=== PATIENT | male | born 1945 | race Caucasian/White ===

== ENCOUNTER 2024-01-01 14:16 | Observation (INO) ==
[2024-01-01] MEDS ORDERED: CONSULT PHARMACY - POTASSIUM & MAGNESIUM XX SCH (16:36)
[2024-01-01] MEDS ORDERED: NS 1,000 ML IV 1,000 ML ONE (16:39)
[2024-01-01 17:07] LABS: EOSINOPHILS # (AUTO) 0.1 x10^3/uL (0.0-0.2); EOSINOPHILS % (AUTO) 3.2 % (0.9-2.9); HEMATOCRIT 36.7 % (42.0-54.0); HEMOGLOBIN 12.4 g/dL (13.5-18.0); LYMPHOCYTES # (AUTO) 0.9 X10^3/uL (1.3-2.9); LYMPHOCYTES % (AUTO) 20.2 % (21.0-51.0); MEAN CORPUSCULAR HGB CONC 33.9 g/dL (33.0-35.0); MEAN CORPUSCULAR VOLUME 82.8 fL (80.0-100.0); MEAN PLATELET VOLUME 7.6 fL (7.4-11.0); MONOCYTES # (AUTO) 0.5 x10^3/uL (0.3-0.8); MONOCYTES % (AUTO) 11.6 % (0.0-13.0); NEUTROPHILS # (AUTO) 2.9 x10^3/uL (2.2-4.8); PLATELET COUNT 154 X10^3/uL (150.0-450.0); RED BLOOD COUNT 4.44 X10^6/uL (4.7-6.0); RED CELL DISTRIBUTION WIDTH 14.5 % (11.6-16.5); WHITE BLOOD COUNT 4.6 X10^3/uL (3.6-10.0)
[2024-01-01 17:18] LABS: ALANINE AMINOTRANSFERASE 21 Units/L (12-78); ALBUMIN 3.5 g/dL (3.4-5.0); ALKALINE PHOSPHATASE 82 Units/L (46-116); ASPARTATE AMINO TRANSFERASE 11 Units/L (15-37); BLOOD UREA NITROGEN 39 mg/dL (7-18); CALCIUM 8.5 mg/dL (8.5-10.1); CARBON DIOXIDE 25.5 mmol/L (21-32); CHLORIDE 108 mmol/L (98-107); COR NA(FOR HYPERGLY) 145 mmol/L (136-145); CREATININE 1.71 mg/dL (0.70-1.30); GLUCOSE 124 mg/dL (65-99); MAGNESIUM 1.8 mg/dL (2.0-2.9); POTASSIUM 4.4 mmol/L (3.5-5.1); SODIUM 144 mmol/L (136-145); eGFR NON BLACK RACES 41 (>60)
[2024-01-01] MEDS: NS 1,000 ML IV 1,000 ML IV SCH (17:20)
[2024-01-01] MEDS: CATAPRES TAB 0.1 MG PO ONE (17:25)
--- NOTE | 2024-01-01 17:35 | EKG ---
Test Reason : SOB Blood Pressure : */* mmHG Vent. Rate : 60 BPM Atrial Rate : 60 BPM P-R Int : 138 ms QRS Dur : 148 ms QT Int : 446 ms P-R-T Axes : * -55 53 degrees QTc Int : 446 ms Sinus rhythm with premature atrial complexes Right bundle branch block Left anterior fascicular block Bifascicular block Minimal voltage criteria for LVH, may be normal variant ( R in aVL ) Abnormal ECG No previous ECGs available Confirmed by Bereket Willingham MD ([id number]) on 01/02/2024 7:19:44 AM Referred By: Confirmed By: Bereket Willingham MD
[2024-01-01 17:46] VITALS: BMI 29.0
[2024-01-01 18:00] LABS: BILIRUBIN,URINE NEGATIVE (NEGATIVE); BLOOD/HEMOGLOBIN,URINE NEGATIVE (NEGATIVE); GLUCOSE, URINE NEGATIVE (NEGATIVE); KETONES,URINE NEGATIVE (NEGATIVE); LEUKOCYTE ESTERASE ,URINE NEGATIVE (NEGATIVE); NITRITES,URINE NEGATIVE (NEGATIVE); PROTEIN,URINE NEGATIVE (NEGATIVE); UROBILINOGEN,URINE NORMAL (NORMAL)
--- NOTE | 2024-01-01 18:09 | RAD ---
EXAM:CHESTHISTORY:dizziness, weakness, near syncope;COMPARISON:None.TECHNIQUE:Fronta l view of the chest was submitted for interpretation.FINDINGS:The cardiomediastinal silhouette is within normal limits. Lungs show no focal consolidation, pneumothorax, or pleural fluid.IMPRESSION:No acute cardiopulmonary process.THIS IS AN ELECTRONICALLY VERIFIED FINAL REPORT01/01/2024 6:06 PM - Electronically signed by Kiko Pederson MD
[2024-01-01 18:17] LABS: APPEARANCE,URINE CLEAR (CLEAR); COLOR,URINE YELLOW (YELLOW)
[2024-01-01] MEDS: APRESOLINE INJ 20 MG VIAL IVP ONE (18:31)
[2024-01-01] MEDS: MAG-OX TAB PO SCH (20:40)
[2024-01-01] MEDS: NovoLIN R (or HumuLIN R) SUBCUT PRN (20:46)
--- NOTE | 2024-01-01 20:58 | EKG ---
Test Reason : SOB Blood Pressure : */* mmHG Vent. Rate : 62 BPM Atrial Rate : 62 BPM P-R Int : 156 ms QRS Dur : 148 ms QT Int : 454 ms P-R-T Axes : -12 -58 53 degrees QTc Int : 460 ms Normal sinus rhythm Right bundle branch block Left anterior fascicular block Bifascicular block Minimal voltage criteria for LVH, may be normal variant ( R in aVL ) Septal infarct , age undetermined Abnormal ECG When compared with ECG of 01-JAN-2024 17:00, (Unconfirmed) premature atrial complexes are no longer present septal q waves more prominent Confirmed by Bereket Willingham MD ([id number]) on 01/02/2024 7:21:22 AM Referred By: Confirmed By: Bereket Willingham MD
[2024-01-01] MEDS: NORMODYNE INJ 20 MG VIAL IV PRN (21:05)
[2024-01-01] MEDS: SNACK - Diabetic Appropriate PO SCH (21:25)
--- NOTE | 2024-01-02 00:20 | EKG ---
Test Reason : SOB Blood Pressure : */* mmHG Vent. Rate : 61 BPM Atrial Rate : 61 BPM P-R Int : 166 ms QRS Dur : 148 ms QT Int : 460 ms P-R-T Axes : 105 -60 62 degrees QTc Int : 463 ms Normal sinus rhythm Right bundle branch block Left anterior fascicular block Bifascicular block Minimal voltage criteria for LVH, may be normal variant ( R in aVL ) Septal infarct (cited on or before 01-JAN-2024) Abnormal ECG When compared with ECG of 01-JAN-2024 20:46, (Unconfirmed) Questionable change in initial forces of Septal leads Confirmed by Bereket Willingham MD ([id number]) on 01/02/2024 7:21:37 AM Referred By: Confirmed By: Bereket Willingham MD
[2024-01-02 05:55] LABS: BASOPHILS % (AUTO) 0.8 % (0.2-1.0); EOSINOPHILS # (AUTO) 0.2 x10^3/uL (0.0-0.2); EOSINOPHILS % (AUTO) 3.4 % (0.9-2.9); HEMATOCRIT 36.5 % (42.0-54.0); HEMOGLOBIN 12.4 g/dL (13.5-18.0); LYMPHOCYTES # (AUTO) 0.7 X10^3/uL (1.3-2.9); LYMPHOCYTES % (AUTO) 14.6 % (21.0-51.0); MEAN CORPUSCULAR VOLUME 82.2 fL (80.0-100.0); MEAN PLATELET VOLUME 7.7 fL (7.4-11.0); MONOCYTES # (AUTO) 0.5 x10^3/uL (0.3-0.8); MONOCYTES % (AUTO) 11.3 % (0.0-13.0); NEUTROPHILS # (AUTO) 3.2 x10^3/uL (2.2-4.8); NEUTROPHILS % (AUTO) 69.9 % (42.0-75.0); PLATELET COUNT 152 X10^3/uL (150.0-450.0); RED BLOOD COUNT 4.44 X10^6/uL (4.7-6.0); RED CELL DISTRIBUTION WIDTH 14.5 % (11.6-16.5); WHITE BLOOD COUNT 4.6 X10^3/uL (3.6-10.0)
[2024-01-02 06:03] LABS: ALANINE AMINOTRANSFERASE 21 Units/L (12-78); ALBUMIN 3.4 g/dL (3.4-5.0); ALKALINE PHOSPHATASE 78 Units/L (46-116); ASPARTATE AMINO TRANSFERASE 14 Units/L (15-37); BLOOD UREA NITROGEN 33 mg/dL (7-18); CALCIUM 8.5 mg/dL (8.5-10.1); CARBON DIOXIDE 25.4 mmol/L (21-32); CHLORIDE 108 mmol/L (98-107); COR NA(FOR HYPERGLY) 144 mmol/L (136-145); CREATININE 1.56 mg/dL (0.70-1.30); GLUCOSE 130 mg/dL (65-99); MAGNESIUM 1.8 mg/dL (2.0-2.9); POTASSIUM 4.3 mmol/L (3.5-5.1); SODIUM 143 mmol/L (136-145); TOTAL PROTEIN 6.8 g/dL (6.4-8.2); eGFR NON BLACK RACES 46 (>60)
[2024-01-02] MEDS ORDERED: CONSULT PHARMACY - POTASSIUM & MAGNESIUM XX SCH (07:00)
[2024-01-02] MEDS: LOVENOX INJ 40 MG SYR SC SCH (09:07)
[2024-01-02] MEDS: MAG-OX TAB PO SCH (09:07)
--- NOTE | 2024-01-02 10:43 | DR.UPDATE ---
H&P Update Prescription drug monitoring program results: PDMP reviewed and no concerns identified H&P Reviewed: Yes Any changes to H&P?: Yes Changes noted:: WAS A DIRECT ADMISSION TO THE HOSPITAL OBSERVATION STATUS FOR FURTHER EVALUATION AND TREATMENT OF NEAR SYNCOPE, DIZZINESS, WEAKNESS, AND HYPERTENSION. ON ARRIVAL TO THE HOSPITAL, HIS VITALS WERE: 98.0-57-20-98%-204/78. LABS WERE OBTAINED. WBC 4.6, RBC 4.44, HGB 12.4, HCT 36.7, PLT COUNT 154, D-DIMER 0.97, SODIUM 144, POTASSIUM 4.4, CHLORIDE 108, BUN 39, CREATININE 1.71, GLUCOSE 124, CALCIUM 8.5, MAGNESIUM 1.8, TOTAL BILI 0.30, AST 11, ALT 21, ALK PHOS 82, CREATINE KINASE 78, TROPONIN 5.9, BNP 97.8, TOTAL PROTEIN 7.0, ALBUMIN 3.5. A URINALYSIS WAS OBTAINED AND WAS UNREMARKABLE, HOWEVER, A CULTURE WAS SET UP. A CHEST XRAY WAS OBTAINED AND REVEALED: NO ACUTE CARDIOPULMONARY DISEASE. EKG REVEALED: SINUS RHYTHM WITH PREMATURE ATRIAL COMPLEXES. RIGHT BUNDLE BRANCH BLOCK. HR 60 BPM. ON ADMISSION, HE WAS STARTED ON NORMAL SALINE AT 80 ML/HR, OTBS ACHS, HUMULIN R SLIDING SCALE, LOVENOX 40MG SC DAILY, AND THE LABETALOL PROTOCOL. WE WILL RESUME HIS HOME MEDICATIONS OF PRILOSEC, SIMVASTATIN, LABETALOL, NORVASC, TAMSULOSIN, SUCRALFATE, ASPIRIN, AND OLMESARTAN. WE WILL OBTAIN A BRAIN CT WITHOUT CONTRAST AND REPEAT SERIAL CARDIAC ENZYMES AND EKGS. OTHERWISE, WE WILL FOLLOW-UP WITH AM LABS AND CONTINUE TO MONITOR. TIME SPENT ON CLINICAL ASSESSMENT, REVIEWING LABS AND IMAGING, DECISION MAKING, AND DOCUMENTATION GREATER THAN 75 MINUTES. Patient was examined?: Yes Vital Signs: Temp Pulse Resp BP BP Pulse Ox O2 Del Method 01/02/24 08:00 97.6 F 65 18 155/67 97 Room Air 01/02/24 04:00 98.5 F 60 20 178/75 96 Room Air 01/02/24 00:00 98.2 F 62 20 159/71 98 Room Air 01/01/24 19:00 Room Air 01/01/24 21:20 184/80 01/01/24 21:00 201/82 01/01/24 20:00 97.6 F 62 18 179/77 99 Room Air 01/01/24 18:30 183/78 01/01/24 18:21 182/102 01/01/24 18:11 165/71 01/01/24 18:01 183/88 01/01/24 17:51 216/86 01/01/24 17:41 194/83 01/01/24 17:31 198/91 01/01/24 17:21 207/91 01/01/24 16:55 Room Air 01/01/24 17:11 98.0 F 57 L 20 190/86 98 Room Air 01/01/24 16:15 Room Air
[2024-01-02] MEDS ORDERED: NORVASC TAB 10 MG PO SCH (11:00)
--- NOTE | 2024-01-02 11:11 | EKG ---
Test Reason : SOB Blood Pressure : */* mmHG Vent. Rate : 56 BPM Atrial Rate : 56 BPM P-R Int : 164 ms QRS Dur : 144 ms QT Int : 458 ms P-R-T Axes : 21 -58 51 degrees QTc Int : 441 ms Sinus bradycardia Right bundle branch block Left anterior fascicular block Bifascicular block Minimal voltage criteria for LVH, may be normal variant ( R in aVL ) Septal infarct (cited on or before 01-JAN-2024) Abnormal ECG When compared with ECG of 02-JAN-2024 00:07, Questionable change in initial forces of Septal leads Confirmed by Bereket Willingham MD ([id number]) on 01/02/2024 11:07:11 AM Referred By: Confirmed By: Bereket Willingham MD
[2024-01-02] MEDS: ZOCOR TAB 20 MG PO SCH (11:19)
[2024-01-02] MEDS: PriLOSEC PO SCH (11:20)
[2024-01-02] MEDS: FLOMAX PO SCH (11:22)
[2024-01-02] MEDS: ASPIRIN EC 81 MG PO SCH (11:22)
[2024-01-02] MEDS: CARAFATE PO SCH (11:22)
[2024-01-02] MEDS: BENICAR PO SCH (11:22)
[2024-01-02] MEDS: NORMODYNE TAB 200 MG PO SCH (11:31)
--- NOTE | 2024-01-02 13:28 | EKG ---
Test Reason : SOB Blood Pressure : */* mmHG Vent. Rate : 57 BPM Atrial Rate : 57 BPM P-R Int : 154 ms QRS Dur : 142 ms QT Int : 462 ms P-R-T Axes : -26 -62 39 degrees QTc Int : 449 ms Sinus bradycardia Right bundle branch block Left anterior fascicular block Bifascicular block Minimal voltage criteria for LVH, may be normal variant ( R in aVL ) Septal infarct (cited on or before 01-JAN-2024) Abnormal ECG When compared with ECG of 02-JAN-2024 10:53, Questionable change in initial forces of Septal leads Confirmed by Bereket Willingham MD ([id number]) on 01/03/2024 7:40:43 AM Referred By: Confirmed By: Bereket Willingham MD
--- NOTE | 2024-01-02 15:33 | CT ---
EXAM:CT HEAD WITHOUT CONTRASTHISTORY:NEAR SYNCOPE, DIZZINESS; WEAKNESS, HTNCOMPARISON:None.TECHNIQUE:Axial CT images were obtained through the brain without contrast.All CT scans at this facility use dose modulation, iterative reconstruction, and/or weight based dosing when appropriate to reduce radiation dose to as low as reasonably achievable.FINDINGS:BRAIN: There is mild diffuse atrophy with proportionate enlargement of the cerebral sulci and ventricular system. Decreased attenuation in the periventricular white matter is compatible with but not specific for chronic small vessel ischemic changes. No evidence of acute infarct intra or extraaxial hemorrhage mass effect or hydrocephalus.CALVARIUM: NormalADDITIONAL FINDINGS: The visualized paranasal sinuses and mastoid air cells are clear. Orbits are grossly unremarkable.IMPRESSION:No evidence of acute intracranial process.THIS IS AN ELECTRONICALLY VERIFIED FINAL REPORT01/02/2024 3:30 PM - Electronically signed by Kiko Pederson MD
--- NOTE | 2024-01-02 19:23 | EKG ---
Test Reason : SOB Blood Pressure : */* mmHG Vent. Rate : 70 BPM Atrial Rate : 70 BPM P-R Int : 162 ms QRS Dur : 148 ms QT Int : 438 ms P-R-T Axes : 6 -63 60 degrees QTc Int : 473 ms Normal sinus rhythm Right bundle branch block Left anterior fascicular block Bifascicular block Minimal voltage criteria for LVH, may be normal variant ( R in aVL ) Septal infarct (cited on or before 01-JAN-2024) Abnormal ECG When compared with ECG of 02-JAN-2024 13:16, (Unconfirmed) Questionable change in initial forces of Septal leads Confirmed by Bereket Willingham MD ([id number]) on 01/03/2024 7:40:05 AM Referred By: Confirmed By: Bereket Willingham MD
[2024-01-02] MEDS: NORVASC TAB 10 MG PO SCH (21:26)
[2024-01-03 03:51] VITALS: O2SAT 98
[2024-01-03 05:44] LABS: BASOPHILS % (AUTO) 0.9 % (0.2-1.0); EOSINOPHILS # (AUTO) 0.2 x10^3/uL (0.0-0.2); HEMATOCRIT 37.2 % (42.0-54.0); HEMOGLOBIN 12.8 g/dL (13.5-18.0); LYMPHOCYTES # (AUTO) 0.6 X10^3/uL (1.3-2.9); LYMPHOCYTES % (AUTO) 12.4 % (21.0-51.0); MEAN CORPUSCULAR HEMOGLOBIN 28.2 pg (27.0-34.0); MEAN CORPUSCULAR HGB CONC 34.3 g/dL (33.0-35.0); MEAN CORPUSCULAR VOLUME 82.2 fL (80.0-100.0); MEAN PLATELET VOLUME 7.6 fL (7.4-11.0); MONOCYTES # (AUTO) 0.6 x10^3/uL (0.3-0.8); MONOCYTES % (AUTO) 12.3 % (0.0-13.0); NEUTROPHILS # (AUTO) 3.2 x10^3/uL (2.2-4.8); NEUTROPHILS % (AUTO) 70.4 % (42.0-75.0); PLATELET COUNT 154 X10^3/uL (150.0-450.0); RED BLOOD COUNT 4.53 X10^6/uL (4.7-6.0); RED CELL DISTRIBUTION WIDTH 14.4 % (11.6-16.5); WHITE BLOOD COUNT 4.5 X10^3/uL (3.6-10.0)
[2024-01-03 06:00] LABS: ALANINE AMINOTRANSFERASE 22 Units/L (12-78); ALBUMIN 3.4 g/dL (3.4-5.0); ALKALINE PHOSPHATASE 82 Units/L (46-116); ASPARTATE AMINO TRANSFERASE 13 Units/L (15-37); BLOOD UREA NITROGEN 26 mg/dL (7-18); CALCIUM 8.4 mg/dL (8.5-10.1); CARBON DIOXIDE 25.4 mmol/L (21-32); CHLORIDE 109 mmol/L (98-107); COR NA(FOR HYPERGLY) 144 mmol/L (136-145); GLUCOSE 127 mg/dL (65-99); POTASSIUM 4.3 mmol/L (3.5-5.1); SODIUM 143 mmol/L (136-145); TOTAL PROTEIN 6.8 g/dL (6.4-8.2); eGFR NON BLACK RACES 57 (>60)
[2024-01-03 09:22] VITALS: BP 182/76; PULSE 63; RESP 18; TEMP 97.9
[2024-01-03] MEDS: MAG-OX TAB ONE (11:35)
== END 2024-01-03 11:35 | disposition home or self-care (01) ==
LOC: MED/SURG
PROVIDERS: ADMIT Internal Medicine; ATTEND Internal Medicine
DX: E83.42 Hypomagnesemia; R53.1 Weakness; R94.31 Abnormal electrocardiogram [ECG] [EKG]; I95.89 Other hypotension; R55 Syncope and collapse; R42 Dizziness and giddiness; E11.65 Type 2 diabetes mellitus with hyperglycemia